=== PATIENT | male | born 1955 | race Caucasian/White ===

== ENCOUNTER 2017-11-03 18:45 | Inpatient (IN) | payer MEDICARE, OTHER ==
[~2017-11-03] VITALS: Ht 188 cm; Wt 90.5 kg
[2017-11-03 19:34] LABS: BASOPHILS % (AUTO) 0.1 % (0-1); EOSINOPHILS # (AUTO) 0.2 X10'3 (0-0.9); EOSINOPHILS % (AUTO) 1.2 % (0-6); HEMATOCRIT 46.2 % (42.0-52.0); HEMOGLOBIN 15.7 g/dl (14.0-17.9); LYMPHOCYTES # (AUTO) 1.6 X10'3 (1.1-4.8); LYMPHOCYTES % (AUTO) 11.6 % (21-51); MEAN CORPUSCULAR HEMOGLOBIN 32.3 PG (27.0-31.0); MEAN CORPUSCULAR HGB CONC 34.1 % (33.0-36.5); MEAN CORPUSCULAR VOLUME 94.7 FL (78-98); MEAN PLATELET VOLUME 6.9 FL (7.4-10.4); MONOCYTES # (AUTO) 0.9 X10'3 (0-0.9); MONOCYTES % (AUTO) 6.7 % (2-12); NEUTROPHILS # (AUTO) 11.2 X10'3 (1.8-7.7); NEUTROPHILS % (AUTO) 80.4 % (42-75); PLATELET COUNT 265 X10'3 (140-440); RED BLOOD COUNT 4.88 X10'6 (4.70-6.10); RED CELL DISTRIBUTION WIDTH 15.7 % (11.5-14.5); WHITE BLOOD COUNT 13.9 X10'3 (4.5-11.0)
[2017-11-03 19:44] LABS: INR 0.9 INR; PARTIAL THROMBOPLASTIN TIME 25 SECONDS (22-32); PROTHROMBIN TIME 9.7 SECONDS (9.0-12.0)
[2017-11-03 19:49] LABS: ALANINE AMINOTRANSFERASE 45 U/L (12-78); ALBUMIN 3.7 G/DL (3.4-5.0); ALBUMIN/GLOBULIN RATIO 0.9 (1.1-1.5); ALKALINE PHOSPHATASE 72 IU/L (46-116); ANION GAP 6 (8-16); ASPARTATE AMINO TRANSFERASE 20 U/L (10-37); BILIRUBIN,TOTAL 0.5 MG/DL (0.1-1.0); BLOOD UREA NITROGEN 14 MG/DL (7-18); BUN/CREATININE RATIO 13.7 (5.4-32.0); CHLORIDE 101 MMOL/L (99-107); CREATININE 1.02 MG/DL (0.60-1.10); GLUCOSE 126 MG/DL (70-104); POTASSIUM 3.6 MMOL/L (3.5-5.1); SODIUM 142 MMOL/L (135-145); TOTAL CARBON DIOXIDE 35.2 MMOL/L (24-32); TOTAL PROTEIN 7.8 G/DL (6.4-8.2); eGFR 74 ML/MIN
[2017-11-03] MEDS ORDERED: fentaNYL/PF 50MCG/1 ML 2ML syringe IV ONE ×2 (20:05→20:25)
[2017-11-03] MEDS ORDERED: ondansetron/PF 4mg/2ml inj IV ONE (20:05)
[2017-11-03] MEDS ORDERED: ringers solution, lacted 1,000 ML IV SCH (21:06)
[2017-11-03] MEDS ORDERED: morphine 4 MG/ML inj SYRINge IV PRN ×3 (21:10→22:05)
[2017-11-03] MEDS ORDERED: meperidine/PF 25mg/ml syringe IV PRN ×3 (21:10)
[2017-11-03] MEDS ORDERED: midazolam 2 mg/2 ml injection ONE (21:10)
[2017-11-03] MEDS ORDERED: fentaNYL /PF 50mcg/ml 5ml ampule ONE (21:10)
[2017-11-03] MEDS ORDERED: ondansetron/PF 4mg/2ml inj IV PRN ×2 (21:10→22:05)
[2017-11-03] MEDS ORDERED: proCHLORperazine 10 MG/2 ml inj IV PRN (21:10)
[2017-11-03] MEDS ORDERED: sevoflurane 250ml liquid IH ONE ×2 (21:11)
[2017-11-03] MEDS ORDERED: LIDOcaine 1% 30ml preserv. free vial ONE (21:35)
[2017-11-03] MEDS ORDERED: ROPIVAcaine 0.5% (5mg/ml) 30ml vial ONE (21:35)
[2017-11-03] MEDS ORDERED: magnesium hydroxide 30ml (MOM) UD suspension PO PRN (22:05)
[2017-11-03] MEDS ORDERED: acetaminophen 325mg tablet PO PRN (22:05)
[2017-11-03] MEDS ORDERED: mag hydrox/Alum hydrox/simeth 30ml oral suspension PO PRN (22:05)
[2017-11-03] MEDS ORDERED: furosemide 40mg/4ml inj ONE ×2 (23:44→23:49)
[2017-11-03] MEDS ORDERED: rocuronium 10mg/ml inj IV ONE ×2 (23:47)
[2017-11-03] MEDS ORDERED: neostigmine methylsulfate 1 MG/ML 10ml vial ONE (23:48)
[2017-11-03] MEDS ORDERED: dexamethasone sod phosphate 4mg/ml inj. ONE (23:48)
[2017-11-03] MEDS ORDERED: glycopyrrolate 0.2mg/ml inj ONE (23:48)
[2017-11-03] MEDS ORDERED: propofol inj 20 ML IV ONE (23:48)
[2017-11-03] MEDS ORDERED: ondansetron/PF 4mg/2ml inj ONE (23:48)
[2017-11-03] MEDS ORDERED: LIDOcaine 2% (20mg/ml) 5ml vial ONE (23:48)
[2017-11-03] MEDS ORDERED: ceFOXitin 1000 MG inj ONE (23:50)
[2017-11-04] VITALS (20 sets, daily range): BP systolic 110–169; BP diastolic 63–106
[2017-11-04] MEDS ORDERED: meperidine/PF 50mg/ml syringe ONE (00:19)
[2017-11-04] MEDS ORDERED: naloxone 0.4 mg/ml inj IV PRN (00:45)
[2017-11-04] MEDS ORDERED: labetalol 20mg/4ml (5mg/ml) syringe IV ONE (00:55)
[2017-11-04] MEDS: morphine/NS 5 mg/ml CADD 50 ML IV SCH ×13 (01:00→23:00)
[2017-11-04] MEDS ORDERED: meperidine/PF 25mg/ml syringe ONE ×2 (01:29→01:36)
[2017-11-04 05:11] LABS: BASOPHILS % (AUTO) 0 % (0-1); EOSINOPHILS % (AUTO) 0 % (0-6); HEMATOCRIT 36.8 % (42.0-52.0); HEMOGLOBIN 12.5 g/dl (14.0-17.9); LYMPHOCYTES # (AUTO) 0.5 X10'3 (1.1-4.8); LYMPHOCYTES % (AUTO) 3.3 % (21-51); MEAN CORPUSCULAR HEMOGLOBIN 31.9 PG (27.0-31.0); MEAN CORPUSCULAR HGB CONC 33.9 % (33.0-36.5); MEAN CORPUSCULAR VOLUME 94.3 FL (78-98); MEAN PLATELET VOLUME 7.3 FL (7.4-10.4); MONOCYTES # (AUTO) 0.7 X10'3 (0-0.9); MONOCYTES % (AUTO) 4.9 % (2-12); NEUTROPHILS # (AUTO) 13.8 X10'3 (1.8-7.7); NEUTROPHILS % (AUTO) 91.8 % (42-75); PLATELET COUNT 199 X10'3 (140-440); RED BLOOD COUNT 3.91 X10'6 (4.70-6.10); RED CELL DISTRIBUTION WIDTH 15.8 % (11.5-14.5)
[2017-11-04 05:50] LABS: ALANINE AMINOTRANSFERASE 26 U/L (12-78); ALBUMIN 2.4 G/DL (3.4-5.0); ALBUMIN/GLOBULIN RATIO 0.8 (1.1-1.5); ALKALINE PHOSPHATASE 51 IU/L (46-116); ANION GAP 8 (8-16); ASPARTATE AMINO TRANSFERASE 20 U/L (10-37); BILIRUBIN,TOTAL 0.5 MG/DL (0.1-1.0); BLOOD UREA NITROGEN 14 MG/DL (7-18); BUN/CREATININE RATIO 19.2 (5.4-32.0); CALCIUM 7.9 MG/DL (8.5-10.1); CHLORIDE 106 MMOL/L (99-107); CREATININE 0.73 MG/DL (0.60-1.10); GLUCOSE 154 MG/DL (70-104); MAGNESIUM 1.7 MG/DL (1.5-2.4); PHOSPHORUS 3.5 MG/DL (2.3-4.5); POTASSIUM 3.5 MMOL/L (3.5-5.1); SODIUM 143 MMOL/L (135-145); TOTAL PROTEIN 5.3 G/DL (6.4-8.2); eGFR > 90 ML/MIN
[2017-11-04] MEDS: ceFOXitin 1 GM ADDVANTAGE BAG 1,000 MG in normal saline 100ml IV soln 100 ML IV SCH ×2 (08:41→15:47)
[2017-11-04] MEDS ORDERED: BUPR150T8 PO (12:22)
[2017-11-04] MEDS ORDERED: CARI350T PO (12:22)
[2017-11-04] MEDS ORDERED: HYDR-565 PO (12:22)
[2017-11-04] MEDS ORDERED: TEMA15CA5 PO (12:23)
[2017-11-04] MEDS ORDERED: normal saline 1000ml 1,000 ML IV SCH (14:45)
[2017-11-04] MEDS: zolpidem 5mg tablet PO PRN (22:10)
[2017-11-05] VITALS: BP 123/55
[2017-11-05] MEDS: morphine/NS 5 mg/ml CADD 50 ML IV SCH ×12 (01:00→23:00)
[2017-11-05 04:54] LABS: BASOPHILS # (AUTO) 0.1 X10'3 (0-0.2); BASOPHILS % (AUTO) 0.3 % (0-1); EOSINOPHILS % (AUTO) 0 % (0-6); HEMATOCRIT 39.4 % (42.0-52.0); HEMOGLOBIN 13.3 g/dl (14.0-17.9); LYMPHOCYTES % (AUTO) 11.9 % (21-51); MEAN CORPUSCULAR HEMOGLOBIN 32.5 PG (27.0-31.0); MEAN CORPUSCULAR HGB CONC 33.8 % (33.0-36.5); MEAN CORPUSCULAR VOLUME 96.2 FL (78-98); MEAN PLATELET VOLUME 6.8 FL (7.4-10.4); MONOCYTES # (AUTO) 1.2 X10'3 (0-0.9); MONOCYTES % (AUTO) 7.5 % (2-12); NEUTROPHILS # (AUTO) 13.2 X10'3 (1.8-7.7); NEUTROPHILS % (AUTO) 80.3 % (42-75); PLATELET COUNT 235 X10'3 (140-440); RED CELL DISTRIBUTION WIDTH 15.8 % (11.5-14.5); WHITE BLOOD COUNT 16.5 X10'3 (4.5-11.0)
[2017-11-05 05:25] LABS: ALANINE AMINOTRANSFERASE 29 U/L (12-78); ALBUMIN 2.6 G/DL (3.4-5.0); ALBUMIN/GLOBULIN RATIO 0.8 (1.1-1.5); ALKALINE PHOSPHATASE 54 IU/L (46-116); ANION GAP 7 (8-16); ASPARTATE AMINO TRANSFERASE 15 U/L (10-37); BILIRUBIN,TOTAL 0.6 MG/DL (0.1-1.0); BLOOD UREA NITROGEN 22 MG/DL (7-18); BUN/CREATININE RATIO 23.4 (5.4-32.0); CALCIUM 8.5 MG/DL (8.5-10.1); CHLORIDE 108 MMOL/L (99-107); CREATININE 0.94 MG/DL (0.60-1.10); GLUCOSE 124 MG/DL (70-104); MAGNESIUM 2.6 MG/DL (1.5-2.4); PHOSPHORUS 1.5 MG/DL (2.3-4.5); POTASSIUM 3.8 MMOL/L (3.5-5.1); SODIUM 144 MMOL/L (135-145); TOTAL CARBON DIOXIDE 29.2 MMOL/L (24-32); eGFR 81 ML/MIN
[2017-11-05] MEDS: enoxaparin 40mg/0.4ml syringe SUBCUT SCH (07:33)
[2017-11-05 07:38] VITALS: BP 127/68
[2017-11-05 11:32] VITALS: BP 130/65
[2017-11-05] MEDS ORDERED: Dextrose 10%-water IV solution 1,000 ML IV PRN (13:04)
[2017-11-05] MEDS ORDERED: fat emulsion IV 181.82 ML, MVI, adult No.4 with vit. K 4.55 ML, Trace element-5 inj. 0.... IV SCH ×4 (13:04)
[2017-11-05] MEDS ORDERED: magnesium 4gm in 100ml NS 100 ML IV PRN (13:05)
[2017-11-05] MEDS ORDERED: magnesium/D5W IVPB 50 ML IV PRN (13:05)
[2017-11-05] MEDS ORDERED: magnesium Cl slow-release 64mg tablet PO PRN (13:05)
[2017-11-05] MEDS: methylnaltrexone br 12mg/0.6ml inj***SubQ only SQ SCH (13:42)
[2017-11-05] MEDS: dextrose 5%-lactated ringers 1,000 ML IV SCH ×2 (13:43→23:12)
[2017-11-05 14:30] LABS: ALANINE AMINOTRANSFERASE 29 U/L (12-78); ALBUMIN 2.5 G/DL (3.4-5.0); ALBUMIN/GLOBULIN RATIO 0.8 (1.1-1.5); ALKALINE PHOSPHATASE 54 IU/L (46-116); ANION GAP 5 (8-16); ASPARTATE AMINO TRANSFERASE 21 U/L (10-37); BILIRUBIN,TOTAL 0.5 MG/DL (0.1-1.0); BLOOD UREA NITROGEN 20 MG/DL (7-18); CALCIUM 8.3 MG/DL (8.5-10.1); CHLORIDE 110 MMOL/L (99-107); CREATININE 0.87 MG/DL (0.60-1.10); GLUCOSE 105 MG/DL (70-104); MAGNESIUM 2.3 MG/DL (1.5-2.4); PHOSPHORUS 1.7 MG/DL (2.3-4.5); POTASSIUM 3.7 MMOL/L (3.5-5.1); PREALBUMIN 15.4 MG/DL (19-36); SODIUM 145 MMOL/L (135-145); TOTAL CARBON DIOXIDE 29.9 MMOL/L (24-32); TOTAL PROTEIN 5.7 G/DL (6.4-8.2); TRIGLYCERIDES 78 MG/DL (20-135); eGFR 89 ML/MIN
[2017-11-05] MEDS ORDERED: fat emulsion IV 200 ML, MVI, adult No.4 with vit. K 10 ML, Trace element-5 inj. 1 ML in... IV SCH ×4 (15:05)
[2017-11-05] MEDS: buPROPion SR 150mg tablet PO SCH (16:38)
[2017-11-05 19:00] VITALS: BP 138/81
[2017-11-05] MEDS: zolpidem 5mg tablet PO PRN (21:06)
[2017-11-06] VITALS: BP 126/65
[2017-11-06] MEDS: morphine/NS 5 mg/ml CADD 50 ML IV SCH ×12 (01:00→23:00)
[2017-11-06] MEDS: CADD PCA waste documentation MC PRN (04:01)
[2017-11-06 06:48] LABS: BASOPHILS % (AUTO) 0.2 % (0-1); EOSINOPHILS # (AUTO) 0.1 X10'3 (0-0.9); EOSINOPHILS % (AUTO) 1.1 % (0-6); HEMATOCRIT 37.2 % (42.0-52.0); HEMOGLOBIN 12.7 g/dl (14.0-17.9); LYMPHOCYTES # (AUTO) 1.2 X10'3 (1.1-4.8); MEAN CORPUSCULAR HEMOGLOBIN 32.5 PG (27.0-31.0); MEAN CORPUSCULAR HGB CONC 34.2 % (33.0-36.5); MEAN CORPUSCULAR VOLUME 95.2 FL (78-98); MEAN PLATELET VOLUME 6.9 FL (7.4-10.4); MONOCYTES # (AUTO) 0.8 X10'3 (0-0.9); NEUTROPHILS % (AUTO) 76.7 % (42-75); PLATELET COUNT 232 X10'3 (140-440); RED CELL DISTRIBUTION WIDTH 15.7 % (11.5-14.5); WHITE BLOOD COUNT 9.2 X10'3 (4.5-11.0)
[2017-11-06 06:58] VITALS: BP 127/85
[2017-11-06] MEDS: buPROPion SR 150mg tablet PO SCH (07:21)
[2017-11-06] MEDS: enoxaparin 40mg/0.4ml syringe SUBCUT SCH (07:23)
[2017-11-06 07:30] LABS: ALANINE AMINOTRANSFERASE 24 U/L (12-78); ALBUMIN 2.4 G/DL (3.4-5.0); ALBUMIN/GLOBULIN RATIO 0.7 (1.1-1.5); ALKALINE PHOSPHATASE 50 IU/L (46-116); ANION GAP 6 (8-16); ASPARTATE AMINO TRANSFERASE 19 U/L (10-37); BILIRUBIN,TOTAL 0.5 MG/DL (0.1-1.0); BLOOD UREA NITROGEN 19 MG/DL (7-18); BUN/CREATININE RATIO 23.5 (5.4-32.0); CALCIUM 8.4 MG/DL (8.5-10.1); CHLORIDE 109 MMOL/L (99-107); CREATININE 0.81 MG/DL (0.60-1.10); GLUCOSE 131 MG/DL (70-104); MAGNESIUM 2.1 MG/DL (1.5-2.4); PHOSPHORUS 1.6 MG/DL (2.3-4.5); POTASSIUM 3.8 MMOL/L (3.5-5.1); SODIUM 145 MMOL/L (135-145); TOTAL CARBON DIOXIDE 29.6 MMOL/L (24-32); eGFR > 90 ML/MIN
[2017-11-06] MEDS: dextrose 5%-lactated ringers 1,000 ML IV SCH (09:00)
[2017-11-06 11:32] VITALS: BP 144/75
[2017-11-06] MEDS ORDERED: Dextrose 10%-water IV solution 1,000 ML IV PRN (13:13)
[2017-11-06] MEDS ORDERED: sodium phosphate inj. 30 MMOL in dextrose 5%-water 240 ML IV ONE (14:50)
[2017-11-06] MEDS: normal saline 1000ml 1,000 ML IV SCH (15:06)
[2017-11-06] MEDS: ondansetron/PF 4mg/2ml inj IV PRN (15:11)
[2017-11-06 19:00] VITALS: BP 146/84
[2017-11-06] MEDS: zolpidem 5mg tablet PO PRN (21:05)
[2017-11-07] VITALS: BP 144/82
[2017-11-07] MEDS: morphine/NS 5 mg/ml CADD 50 ML IV SCH ×12 (01:00→22:58)
[2017-11-07 03:40] LABS: BASOPHILS % (AUTO) 0.1 % (0-1); EOSINOPHILS # (AUTO) 0.2 X10'3 (0-0.9); EOSINOPHILS % (AUTO) 2.6 % (0-6); HEMATOCRIT 35.8 % (42.0-52.0); HEMOGLOBIN 12.1 g/dl (14.0-17.9); LYMPHOCYTES % (AUTO) 12.5 % (21-51); MEAN CORPUSCULAR HGB CONC 33.7 % (33.0-36.5); MEAN CORPUSCULAR VOLUME 95.2 FL (78-98); MEAN PLATELET VOLUME 6.9 FL (7.4-10.4); MONOCYTES # (AUTO) 0.9 X10'3 (0-0.9); MONOCYTES % (AUTO) 11.9 % (2-12); NEUTROPHILS # (AUTO) 5.5 X10'3 (1.8-7.7); NEUTROPHILS % (AUTO) 72.9 % (42-75); PLATELET COUNT 224 X10'3 (140-440); RED BLOOD COUNT 3.76 X10'6 (4.70-6.10); RED CELL DISTRIBUTION WIDTH 15.3 % (11.5-14.5); WHITE BLOOD COUNT 7.6 X10'3 (4.5-11.0)
[2017-11-07 04:16] LABS: ALANINE AMINOTRANSFERASE 20 U/L (12-78); ALBUMIN 2.1 G/DL (3.4-5.0); ALBUMIN/GLOBULIN RATIO 0.6 (1.1-1.5); ALKALINE PHOSPHATASE 43 IU/L (46-116); ANION GAP 7 (8-16); ASPARTATE AMINO TRANSFERASE 16 U/L (10-37); BILIRUBIN,TOTAL 0.5 MG/DL (0.1-1.0); BLOOD UREA NITROGEN 18 MG/DL (7-18); BUN/CREATININE RATIO 24.7 (5.4-32.0); CALCIUM 8.2 MG/DL (8.5-10.1); CHLORIDE 108 MMOL/L (99-107); CREATININE 0.73 MG/DL (0.60-1.10); GLUCOSE 118 MG/DL (70-104); MAGNESIUM 2.1 MG/DL (1.5-2.4); PHOSPHORUS 2.6 MG/DL (2.3-4.5); POTASSIUM 3.3 MMOL/L (3.5-5.1); PREALBUMIN 11.5 MG/DL (19-36); SODIUM 145 MMOL/L (135-145); TOTAL CARBON DIOXIDE 30.5 MMOL/L (24-32); TOTAL PROTEIN 5.6 G/DL (6.4-8.2); TRIGLYCERIDES 76 MG/DL (20-135); eGFR > 90 ML/MIN
[2017-11-07] MEDS: buPROPion SR 150mg tablet PO SCH (08:50)
[2017-11-07] MEDS: enoxaparin 40mg/0.4ml syringe SUBCUT SCH (08:51)
[2017-11-07] MEDS: methylnaltrexone br 12mg/0.6ml inj***SubQ only SQ SCH (08:51)
[2017-11-07 09:10] VITALS: BP 145/83
[2017-11-07 11:26] VITALS: BP 135/75
[2017-11-07] MEDS: CADD PCA waste documentation MC PRN (19:07)
[2017-11-07] MEDS: zolpidem 5mg tablet PO PRN (22:58)
[2017-11-08] VITALS: BP 122/66
[2017-11-08] MEDS: morphine/NS 5 mg/ml CADD 50 ML IV SCH ×5 (00:58→09:00)
[2017-11-08 05:04] LABS: BASOPHILS % (AUTO) 0.3 % (0-1); EOSINOPHILS # (AUTO) 0.2 X10'3 (0-0.9); EOSINOPHILS % (AUTO) 2.8 % (0-6); HEMATOCRIT 35.2 % (42.0-52.0); HEMOGLOBIN 12.1 g/dl (14.0-17.9); LYMPHOCYTES # (AUTO) 1.2 X10'3 (1.1-4.8); LYMPHOCYTES % (AUTO) 13.4 % (21-51); MEAN CORPUSCULAR HEMOGLOBIN 32.7 PG (27.0-31.0); MEAN CORPUSCULAR HGB CONC 34.5 % (33.0-36.5); MEAN CORPUSCULAR VOLUME 94.9 FL (78-98); MEAN PLATELET VOLUME 7.2 FL (7.4-10.4); MONOCYTES # (AUTO) 1.1 X10'3 (0-0.9); MONOCYTES % (AUTO) 13.1 % (2-12); NEUTROPHILS % (AUTO) 70.4 % (42-75); PLATELET COUNT 254 X10'3 (140-440); RED BLOOD COUNT 3.71 X10'6 (4.70-6.10); RED CELL DISTRIBUTION WIDTH 15.4 % (11.5-14.5); WHITE BLOOD COUNT 8.6 X10'3 (4.5-11.0)
[2017-11-08 05:25] LABS: ALANINE AMINOTRANSFERASE 18 U/L (12-78); ALBUMIN/GLOBULIN RATIO 0.6 (1.1-1.5); ALKALINE PHOSPHATASE 46 IU/L (46-116); ANION GAP 7 (8-16); ASPARTATE AMINO TRANSFERASE 15 U/L (10-37); BILIRUBIN,TOTAL 0.6 MG/DL (0.1-1.0); BLOOD UREA NITROGEN 14 MG/DL (7-18); BUN/CREATININE RATIO 21.2 (5.4-32.0); CALCIUM 7.9 MG/DL (8.5-10.1); CHLORIDE 107 MMOL/L (99-107); CREATININE 0.66 MG/DL (0.60-1.10); GLUCOSE 94 MG/DL (70-104); POTASSIUM 3.3 MMOL/L (3.5-5.1); SODIUM 144 MMOL/L (135-145); TOTAL CARBON DIOXIDE 30.4 MMOL/L (24-32); TOTAL PROTEIN 5.6 G/DL (6.4-8.2); eGFR > 90 ML/MIN
[2017-11-08] MEDS: enoxaparin 40mg/0.4ml syringe SUBCUT SCH (07:08)
[2017-11-08] MEDS: buPROPion SR 150mg tablet PO SCH (07:09)
[2017-11-08 07:18] VITALS: BP 157/85
[2017-11-08] MEDS ORDERED: potassium Cl 20 mEq SR tablet PO STA (09:33)
[2017-11-08] MEDS ORDERED: morphine 4 MG/ML inj SYRINge IV PRN (09:50)
[2017-11-08] MEDS: CADD PCA waste documentation MC PRN (10:11)
[2017-11-08] MEDS: HYDROcodone/acetaminophen 10/325mg tab PO PRN ×2 (10:21→20:50)
[2017-11-08 11:35] VITALS: BP 142/76
[2017-11-08] MEDS: normal saline 1000ml 1,000 ML IV SCH (14:50)
[2017-11-08 18:40] VITALS: BP 145/80
[2017-11-08] MEDS: zolpidem 5mg tablet PO PRN (20:43)
[2017-11-09] VITALS: BP 145/67
[2017-11-09] MEDS: HYDROcodone/acetaminophen 10/325mg tab PO PRN ×3 (02:37→21:34)
[2017-11-09] MEDS: ondansetron/PF 4mg/2ml inj IV PRN ×2 (04:29→10:53)
[2017-11-09 08:00] VITALS: BP 159/85
[2017-11-09] MEDS: methylnaltrexone br 12mg/0.6ml inj***SubQ only SQ SCH (08:00)
[2017-11-09] MEDS: buPROPion SR 150mg tablet PO SCH (08:26)
[2017-11-09] MEDS: enoxaparin 40mg/0.4ml syringe SUBCUT SCH (08:31)
[2017-11-09] MEDS ORDERED: ONDA4TAB6 PO (09:47)
[2017-11-09] MEDS ORDERED: HYDR-565 PO (09:47)
[2017-11-09 11:00] VITALS: BP 165/89
[2017-11-09 18:50] VITALS: BP 114/65
[2017-11-09] MEDS: zolpidem 5mg tablet PO PRN (21:25)
[2017-11-10 00:10] VITALS: BP 154/73
[2017-11-10 06:34] LABS: ALANINE AMINOTRANSFERASE 25 U/L (12-78); ALBUMIN 2.1 G/DL (3.4-5.0); ALBUMIN/GLOBULIN RATIO 0.5 (1.1-1.5); ALKALINE PHOSPHATASE 52 IU/L (46-116); ANION GAP 6 (8-16); ASPARTATE AMINO TRANSFERASE 23 U/L (10-37); BILIRUBIN,TOTAL 0.4 MG/DL (0.1-1.0); BLOOD UREA NITROGEN 13 MG/DL (7-18); CALCIUM 8.8 MG/DL (8.5-10.1); CHLORIDE 106 MMOL/L (99-107); CREATININE 0.81 MG/DL (0.60-1.10); GLUCOSE 104 MG/DL (70-104); MAGNESIUM 1.7 MG/DL (1.5-2.4); PHOSPHORUS 3.4 MG/DL (2.3-4.5); POTASSIUM 3.3 MMOL/L (3.5-5.1); PREALBUMIN 11.1 MG/DL (19-36); SODIUM 141 MMOL/L (135-145); TOTAL CARBON DIOXIDE 29.4 MMOL/L (24-32); TRIGLYCERIDES 82 MG/DL (20-135); eGFR > 90 ML/MIN
[2017-11-10 07:00] VITALS: BP 140/85
[2017-11-10] MEDS: HYDROcodone/acetaminophen 10/325mg tab PO PRN ×2 (07:03→12:21)
[2017-11-10] MEDS: buPROPion SR 150mg tablet PO SCH (07:03)
[2017-11-10] MEDS: enoxaparin 40mg/0.4ml syringe SUBCUT SCH (07:04)
[2017-11-10] MEDS ORDERED: potassium Cl 20 mEq SR tablet PO STA (10:03)
[2017-11-10 11:31] VITALS: BP 144/88
== END 2017-11-10 15:25 | disposition home health service (06) | DRG 329 ==
LOC: ER 18:45 → SUR 3N 11-04 00:42
PROVIDERS: ADMIT Emergency Medicine; ATTEND Internal Medicine
PROC: 0DN80ZZ Release Small Intestine, Open Approach (ICD-10-PCS; principal; 2017-11-04)
PROC: 0DBB0ZZ Excision of Ileum, Open Approach (ICD-10-PCS; 2017-11-04)
PROC: 0D9670Z Drainage of Stomach with Drainage Device, Via Natural or Artificial Opening (ICD-10-PCS; 2017-11-04)
PROC: 0D1B0Z4 Bypass Ileum to Cutaneous, Open Approach (ICD-10-PCS; 2017-11-04)
DX: K43.3 Parastomal hernia with obstruction, without gangrene (principal); E43 Unspecified severe protein-calorie malnutrition; K51.90 Ulcerative colitis, unspecified, without complications; K56.7 Ileus, unspecified; K56.50 Intestinal adhesions [bands], unspecified as to partial versus complete obstruction; F41.9 Anxiety disorder, unspecified; G89.29 Other chronic pain; F32.9 Major depressive disorder, single episode, unspecified; Z90.49 Acquired absence of other specified parts of digestive tract; Z79.899 Other long term (current) drug therapy; Z88.6 Allergy status to analgesic agent; Z82.49 Family history of ischemic heart disease and other diseases of the circulatory system; Z68.25 Body mass index [BMI] 25.0-25.9, adult
CPT/HCPCS: 36415; 71045; 74176; 80053; 82948; 83605; 83735; 84100; 84134; 84478; 85025; 85610; 85730; 86885; 86900; 86901; 87070; 88304; 93005; 96374; 96375; 99285; A4353; A4421; A4649; A6212; A6213; A6255; A6258; A6266; A6446; A6449; A7000; C1758; J0694; J1100; J1650; J1940; J2001; J2175; J2250; J2270; J2405; J2704; J2710; J2795; J3010; J3490; J7030; J7060; J7120

== ENCOUNTER 2017-12-02 11:02 | Outpatient (CLI) | payer MEDICARE, OTHER ==
[~2017-12-02 11:02] MED LIST: BUPR150T8 PO; CARI350T PO; HYDR-565 PO; ONDA4TAB6 PO; TEMA15CA5 PO
== END 2017-12-02 23:59 | disposition home or self-care (01) ==
LOC: 64 CT 11:02
PROVIDERS: ATTEND Surgery
DX: R52 Pain, unspecified (principal); Z90.49 Acquired absence of other specified parts of digestive tract
CPT/HCPCS: 74176

== ENCOUNTER 2018-04-04 09:53 | Day surgery (SDC) | payer MEDICARE, OTHER ==
[~2018-04-04 09:53] MED LIST changes: +HYDR-4353 PO; -HYDR-565 PO
== END 2018-04-04 12:17 | disposition home or self-care (01) ==
LOC: WOUND CARE 09:53
PROVIDERS: ATTEND Surgery
DX: T81.31XD Disruption of external operation (surgical) wound, not elsewhere classified, subsequent encounter (principal); L98.492 Non-pressure chronic ulcer of skin of other sites with fat layer exposed; E43 Unspecified severe protein-calorie malnutrition; G89.29 Other chronic pain; F41.9 Anxiety disorder, unspecified; F32.9 Major depressive disorder, single episode, unspecified; Z68.25 Body mass index [BMI] 25.0-25.9, adult; Z79.899 Other long term (current) drug therapy; Z90.49 Acquired absence of other specified parts of digestive tract; Y83.8 Other surgical procedures as the cause of abnormal reaction of the patient, or of later complication, without mention of misadventure at the time of the procedure
CPT/HCPCS: 97597; A6021; A6212

== ENCOUNTER 2018-04-11 08:48 | Day surgery (SDC) | payer MEDICARE, OTHER ==
[~2018-04-11 08:48] MED LIST changes: -ONDA4TAB6 PO
== END 2018-04-11 10:34 | disposition home or self-care (01) ==
LOC: WOUND CARE 08:48
PROVIDERS: ATTEND Surgery
DX: T81.31XD Disruption of external operation (surgical) wound, not elsewhere classified, subsequent encounter (principal); L98.492 Non-pressure chronic ulcer of skin of other sites with fat layer exposed; E43 Unspecified severe protein-calorie malnutrition; G89.29 Other chronic pain; F41.9 Anxiety disorder, unspecified; F32.9 Major depressive disorder, single episode, unspecified; Z68.25 Body mass index [BMI] 25.0-25.9, adult; Z79.899 Other long term (current) drug therapy; Z90.49 Acquired absence of other specified parts of digestive tract; Y83.8 Other surgical procedures as the cause of abnormal reaction of the patient, or of later complication, without mention of misadventure at the time of the procedure
CPT/HCPCS: A6021; A6212

== ENCOUNTER 2018-04-18 09:16 | Day surgery (SDC) | payer MEDICARE, OTHER ==
[2018-04-18 12:08] LABS: ALANINE AMINOTRANSFERASE 32 U/L (12-78); ALBUMIN 3.2 G/DL (3.4-5.0); ALBUMIN/GLOBULIN RATIO 0.9 (1.1-1.5); ALKALINE PHOSPHATASE 73 IU/L (46-116); ANION GAP 6 (8-16); ASPARTATE AMINO TRANSFERASE 23 U/L (10-37); BILIRUBIN,TOTAL 0.3 MG/DL (0.1-1.0); BLOOD UREA NITROGEN 26 MG/DL (7-18); BUN/CREATININE RATIO 20.6 (5.4-32.0); CALCIUM 9.8 MG/DL (8.5-10.1); CHLORIDE 105 MMOL/L (99-107); CREATININE 1.26 MG/DL (0.60-1.10); GLUCOSE 94 MG/DL (70-104); POTASSIUM 4.6 MMOL/L (3.5-5.1); SODIUM 138 MMOL/L (135-145); TOTAL CARBON DIOXIDE 27.1 MMOL/L (24-32); TOTAL PROTEIN 6.8 G/DL (6.4-8.2); eGFR 58 ML/MIN
[2018-04-20] MEDS ORDERED: CELE-193 PO (13:48)
[2018-04-20] MEDS ORDERED: HYDR-4353 PO (13:48)
== END 2018-04-18 11:30 | disposition home or self-care (01) ==
LOC: WOUND CARE 09:16
PROVIDERS: ATTEND Surgery
DX: T81.31XD Disruption of external operation (surgical) wound, not elsewhere classified, subsequent encounter (principal); L98.492 Non-pressure chronic ulcer of skin of other sites with fat layer exposed; E43 Unspecified severe protein-calorie malnutrition; G89.29 Other chronic pain; F41.9 Anxiety disorder, unspecified; F32.9 Major depressive disorder, single episode, unspecified; Z68.25 Body mass index [BMI] 25.0-25.9, adult; Z79.899 Other long term (current) drug therapy; Z90.49 Acquired absence of other specified parts of digestive tract; Z79.891 Long term (current) use of opiate analgesic; Z87.898 Personal history of other specified conditions; Z87.19 Personal history of other diseases of the digestive system; Z87.39 Personal history of other diseases of the musculoskeletal system and connective tissue; Y83.8 Other surgical procedures as the cause of abnormal reaction of the patient, or of later complication, without mention of misadventure at the time of the procedure
CPT/HCPCS: 36415; 80053; 97597; A6021; A6212

== ENCOUNTER 2018-04-19 12:36 | Outpatient (CLI) | payer MEDICARE, OTHER ==
[2018-04-20] MEDS ORDERED: iohexol 300mg/ml 100ml inj. ONE (10:18)
[2018-04-20] MEDS ORDERED: HYDR-4353 PO (13:48)
[2018-04-20] MEDS ORDERED: CELE-193 PO (13:48)
== END 2018-04-19 23:59 | disposition home or self-care (01) ==
LOC: 64 CT 12:36
PROVIDERS: ATTEND Surgery
DX: Z00.00 Encounter for general adult medical examination without abnormal findings (principal); Z53.9 Procedure and treatment not carried out, unspecified reason
CPT/HCPCS: Q9967